=== PATIENT | male | born 1940 | race Caucasian/White ===

== ENCOUNTER 2018-06-13 22:13 | Emergency (ER) | payer MEDICARE, SELFPAY ==
[~2018-06-13] VITALS: Ht 190.5 cm; Wt 85.0 kg
--- NOTE | 2018-06-14 00:15 | NUR ---
pt to room from lobby
--- NOTE | 2018-06-14 00:23 | NUR ---
SLIP AND FALL ON ICE AND NOW LBP AT NOON TODAY per triage note
[2018-06-14] MEDS ORDERED: LOSA25TA25 PO (00:36)
[2018-06-14] MEDS ORDERED: SIMV20TA3 PO (00:36)
[2018-06-14] MEDS ORDERED: METO25TA91 PO (00:36)
--- NOTE | 2018-06-14 01:08 | NUR ---
pt is in [place] now
--- NOTE | 2018-06-14 01:19 | NUR ---
pt came back from [place]
[2018-06-14 02:20] VITALS: BP_DIAS 68
--- NOTE | 2018-06-14 02:20 | NUR ---
given all dc instruction pt understood pt up ambulated to check out
[2018-06-14 02:21] VITALS: BP_SYST 128
--- NOTE | 2018-06-15 09:08 | NUR ---
pt called and has lost his rx for robaxin. [facility] allan wrote new rx and rx was faxed to [phone]
== END 2018-06-14 02:23 | disposition home or self-care (01) ==
LOC: ED 23:59
DX: S06.0X1A Concussion with loss of consciousness of 30 minutes or less, initial encounter (principal); S22.070A Wedge compression fracture of T9-T10 vertebra, initial encounter for closed fracture; S22.080A Wedge compression fracture of T11-T12 vertebra, initial encounter for closed fracture; S32.010A Wedge compression fracture of first lumbar vertebra, initial encounter for closed fracture; Z87.891 Personal history of nicotine dependence; W00.0XXA Fall on same level due to ice and snow, initial encounter; Y93.89 Activity, other specified; Y92.410 Unspecified street and highway as the place of occurrence of the external cause; Y99.8 Other external cause status
CPT/HCPCS: 70450; 72110; 99284